=== PATIENT | female | born 1960 | race Caucasian/White ===

== ENCOUNTER 2020-03-22 00:11 | Emergency (ER) | payer OTHER, SELFPAY ==
--- NOTE | 2020-03-22 00:18 | DI.CT.S_ITS ---
PROCEDURE: CT HEAD/BRAIN WO CON INDICATIONS: Fell and hit head TECHNIQUE: Noncontrast 4.5 mm thick angled axial sections acquired from the foramen magnum to the vertex, with coronal and sagittal reformats. For radiation dose reduction, the following was used: automated exposure control, adjustment of mA and/or kV according to patient size. COMPARISON: None. FINDINGS: Image quality: Excellent. CSF spaces: Basal cisterns are patent. No extra-axial fluid collections. Ventricles are normal in size and shape. Brain: No midline shift. No intracranial masses or hemorrhage. Bustillo-white matter interface is normal. Skull and face: Right frontal scalp hematoma. Calvarium and visualized facial bones are intact, without suspicious lesions. Sinuses: Visualized sinuses and mastoids are clear. IMPRESSION: No acute intracranial finding. Right frontal scalp hematoma. Dictated by: Jerome Dobbins M.D. on 03/22/2020 at 7:53 Approved by: Jerome Dobbins M.D. on 03/22/2020 at 7:55
--- NOTE | 2020-03-22 00:18 | DI.CT.S_ITS ---
PROCEDURE: CT CERVICAL SPINE WO CON INDICATIONS: Fell and hit head TECHNIQUE: Noncontrast 3 mm thick sections acquired from the skull base to the T4 level. Sagittal and coronal reformats were then constructed. For radiation dose reduction, the following was used: automated exposure control, adjustment of mA and/or kV according to patient size. COMPARISON: None. FINDINGS: Image quality: Excellent. Bones: C5-C6 ACDF hardware with mature osseous fusion across the intervertebral disc space. No acute complicating hardware feature. No fractures or dislocations. Visualized superior ribs are intact. Soft tissues: Prevertebral soft tissues are normal in thickness. No paravertebral hematomas. No apical pneumothoraces. IMPRESSION: No CT evidence of acute traumatic cervical spine injury. Dictated by: Jerome Dobbins M.D. on 03/22/2020 at 7:55 Approved by: Jerome Dobbins M.D. on 03/22/2020 at 7:57
[2020-03-22 00:19] VITALS: BP 117/81; PULSE 90; RESP 18; TEMP 36.4; O2SAT 98; BMI 35.9
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
[2020-03-22] MEDS: BACITRACIN OINT 0.9 GM PCKT 3 APPLIC TOP (01:02)
[2020-03-22] MEDS: LIDO 1%/SOD BICARB 8.4% (10ML) 10 ML SYRINGE INJ (01:02)
[2020-03-22 01:30] VITALS: BP 118/73; PULSE 72; RESP 15; O2SAT 99
== END 2020-03-22 01:30 | disposition home or self-care (01) ==
LOC: ED 01:37
PROVIDERS: Emergency Provider Emergency Medicine
DX: S01.81XA Laceration without foreign body of other part of head, initial encounter (principal); F10.129 Alcohol abuse with intoxication, unspecified; R51.9 Headache, unspecified; W19.XXXA Unspecified fall, initial encounter
CPT/HCPCS: 12011; 70450; 72125; 99284; 99285